=== PATIENT | male | born 1960 | race Caucasian/White ===

== ENCOUNTER 2016-10-31 08:55 | Emergency (ER) | payer BC ==
[2016-10-31 09:15] VITALS: BP 146/100; PULSE 110; TEMP 99.6; BMI 32.8
[2016-10-31] MEDS ORDERED: IBUPROFEN 400 MG TABLET (FP) PO ONE ×2 (09:16→10:03)
--- NOTE | 2016-10-31 09:16 | PDOC ---
History of Present Illness - General Chief Complaint: Cold Symptoms Stated Complaint: FLU Time Seen by Provider: 10/31/16 09:15 History Source: Patient, Old Records Exam Limitations: No Limitations - History of Present Illness Initial Comments: 10/31/16 09:28 6-year-old male with history of hypertension, coronary artery disease and stents who presents to the emergency department with a 2 day history of sore throat, fever, body aches and nonproductive cough. He denies nausea and vomiting. He denies abdominal pain, diarrhea, complaints. He denies chest pain and SOB. Past History - Travel Traveled outside of the country in the last 30 days: No Close contact w/someone who was outside of country & ill: No - Past Medical History Allergies/Adverse Reactions: Allergies Allergy/AdvReac Type Severity Reaction Status Date / Time No Known Allergies Allergy Verified 10/31/16 09:07 Home Medications: Ambulatory Orders Aspirin [Aspirin EC] 81 mg PO DAILY 10/31/16 Metoprolol Succinate [Toprol Xl] 50 mg PO DAILY 10/31/16 Oseltamivir Phosphate [Tamiflu] 75 mg PO BID #10 capsule 10/31/16 Cardiac Disorders: Yes (STENT X3) HTN: Yes - Surgical History Cardiac Surgery: Yes (STENT X3) - Psycho/Social/Smoking Cessation Hx Anxiety: No Suicidal Ideation: No Smoking History: Never smoked Hx Alcohol Use: No Drug/Substance Use Hx: No Substance Use Type: None Review of Systems - Review of Systems Able to Perform ROS?: Yes Is the patient limited Faroese proficient: No Constitutional: Yes: Chills, Fever, Loss of Appetite, Malaise HEENTM: Yes: See HPI, Throat Pain Respiratory: Yes: See HPI, Cough *Physical Exam - Vital Signs Last Vital Signs Temp Pulse Resp BP Pulse Ox 99.6 F 110 H 16 146/100 98 10/31/16 09:06 10/31/16 09:06 10/31/16 09:06 10/31/16 09:06 10/31/16 09:06 - Physical Exam Comments: 10/31/16 09:29 GENERAL: Well developed, well nourished. Awake and alert. No acute distress. HEENT: Normocephalic, atraumatic. PERRLA, EOMI. No conjunctival pallor. Sclera are non- icteric. Moist mucous membranes. Oropharynx is erythematous without exudates. NECK: Supple. Full ROM. No JVD. No lymphadenopathy. CARDIOVASCULAR: Regular rate and rhythm. No murmurs, rubs, or gallops. Distal pulses are 2+ and symmetric. PULMONARY: No evidence of respiratory distress. Lungs clear to auscultation bilaterally. No wheezing, rales or rhonchi. ABDOMINAL: Soft. Non-tender. Non-distended. No rebound or guarding. No organomegaly. Normoactive bowel sounds. MUSCULOSKELETAL Normal range of motion at all joints. No bony deformities or tenderness. No CVA tenderness. EXTREMITIES: No cyanosis. No clubbing. No edema. No calf tenderness. SKIN: Warm and dry. Normal capillary refill. No rashes. No jaundice. NEUROLOGICAL: Alert, awake, appropriate. Cranial nerves 2-12 intact. Grossly non-focal exam. PSYCHIATRIC: Cooperative. Good eye contact. Appropriate mood and affect. Medical Decision Making - Medical Decision Making 10/31/16 09:30 56-year-old male with history of hypertension and CAD presents to the emergency department with 2 day history of sore throat, nonproductive cough, subjective fevers and bodyaches. Differential diagnosis includes but is not limited to: Influenza, URI, strep pharyngitis. Plan: 1. Influenza PCR 2. Rapid strep 3. Ibuprofen for pain and fever 4. Observe and reevaluate 10/31/16 11:23 Addendum: Influenza PCR is positive for influenza A. Tamiflu has been prescribed given in the ED. All lab results were discussed with the patient as well as his diagnosis. The patient has been advised to follow-up with his primary care physician within 3-5 days and to return to the emergency department if his symptoms persist, worsen, or new symptoms arise. *DC/Admit/Observation/Transfer Diagnosis at time of Disposition: URI due to influenza A virus Diagnosis at time of Disposition: (Ruled Out): Acute URI - Discharge Dispostion Disposition: HOME Condition at time of disposition: Stable Admit: No - Prescriptions Prescriptions: Oseltamivir Phosphate [Tamiflu] 75 mg PO BID #10 capsule - Patient Instructions Printed Discharge Instructions: DI for Influenza -- Adult Additional Instructions: You have tested positive for influenza A. You have been prescribed Tamiflu 75 mg. Take 1 tablet twice per day for the next 5 days. You a rapid strep test was negative. You may take Tylenol or Motrin as needed for body aches, sore throat or fever. Please follow-up with your primary care physician within 3-5 days. Please return to the emergency department if your symptoms persist, worsen, or new symptoms arise.
[2016-10-31] MEDS ORDERED: OSELTAMIVIR PHOSPHATE 75 MG CAPSULE PO ONE (11:20)
[2016-10-31] MEDS ORDERED: OSELTAMIVIR PHOSPHATE 75 MG CAPSULE ONE (11:43)
== END 2016-10-31 11:53 | disposition home or self-care (01) ==
LOC: FER 08:55
DX: J09.X2 Influenza due to identified novel influenza A virus with other respiratory manifestations (principal); I10 Essential (primary) hypertension; I25.10 Atherosclerotic heart disease of native coronary artery without angina pectoris; Z95.5 Presence of coronary angioplasty implant and graft; Z79.82 Long term (current) use of aspirin
CPT/HCPCS: 87070; 87430; 87804; 99282-25

== ENCOUNTER 2017-07-19 22:28 | Emergency (ER) | payer BC ==
--- NOTE | 2017-07-19 22:39 | PDOC ---
History of Present Illness - General Chief Complaint: Chest Pain Stated Complaint: CHEST PAIN/LUNG PAIN Time Seen by Provider: 07/19/17 22:39 - History of Present Illness Initial Comments: 07/20/17 01:18 Chief complaint: Chest pain History of present illness: Patient developed left anterior chest pain described as a severe ache at approximately 8 PM tonight while driving his car. The pain was sustained, radiated to the left shoulder and left upper arm, was accompanied by nausea and diaphoresis. There was no shortness of breath. Review of systems: As above. In addition, patient denies fever or chills, recent URI, cough, pleuritic pain, abdominal pain, vomiting or diarrhea, urinary tract symptoms including dysuria frequency urgency hesitancy or hematuria, hematemesis, melena, bloody stool. Also denies visual or focal neurologic symptoms, unsteadiness of gait, headache, lightheadedness, dizziness , or vertigo Past medical history: Coronary artery disease, with angioplasty and stents [id number] at [facility]. No consistent follow-up. High blood pressure. He takes metoprolol 50 mg daily, and to get this morning. However he has been prescribed other medications including aspirin, of which he is noncompliant. He admits high blood pressure and borderline diabetes. He denies prior [place] or CVA/TIA. Social history: Denies tobacco alcohol or nonprescription drugs. Works as a student truck driver. with children stable home and family. Denies any unusual stress Family history: Mother and father with coronary artery disease, [place] in their early 60s. 5 younger brothers, 2 younger sisters, none with known coronary artery disease or other heart problems. No other illnesses known including metabolic disease such as diabetes or cancer. Physical exam: Alert and oriented 3, well-developed well-nourished, moderate distress due to chest pain Color is ashen PERRLA, fundi benign, ENT clear Neck supple without bruit mass or nodes Chest clear with full breath sounds bilaterally, no wheezes rales or rhonchi CV regular without murmur rub or gallop pulses full and symmetric no JVD or edema no bruits Abdomen soft nontender without mass or organomegaly Extremities no CCE Skin clear, no rash, adequate turgor and wet mucous membranes. The patient is not diaphoretic, cool, or clammy. Neurological C2 to 12 intact. No focal sensory or motor deficits. Strength full and symmetric. Gait stable and unimpaired Impression: Chest pain, possible cardiac ischemia, with other possibilities including lung disease such as pneumonia or pulmonary embolus, musculoskeletal pain, or anxiety Plan: EKG, enzymes, further medical management depending on results. Past History - Past Medical History Allergies/Adverse Reactions: Allergies Allergy/AdvReac Type Severity Reaction Status Date / Time No Known Allergies Allergy Verified 10/31/16 09:07 Home Medications: Ambulatory Orders Aspirin [Aspirin EC] 81 mg PO DAILY 10/31/16 Metoprolol Succinate [Toprol Xl] 50 mg PO DAILY 10/31/16 Cardiac Disorders: Yes (STENT X3) HTN: Yes - Surgical History Cardiac Surgery: Yes (STENT X3) - Suicide/Smoking/Psychosocial Hx Smoking History: Never smoked Hx Alcohol Use: No Drug/Substance Use Hx: No Substance Use Type: None *Physical Exam - Vital Signs Last Vital Signs Temp Pulse Resp BP Pulse Ox 99.1 F 98 H 14 110/81 100 07/19/17 22:35 07/20/17 00:08 07/20/17 00:08 07/20/17 00:08 07/20/17 00:08 ED Treatment Course - LABORATORY CBC & Chemistry Diagram: 07/19/17 22:49 07/19/17 22:49 - ADDITIONAL ORDERS Additional order review: Laboratory Results 07/19/17 07/19/17 22:49 22:48 PT with INR 11.7 INR 1.05 Sodium 133 L Potassium 4.4 Chloride 102 Carbon Dioxide 23 Anion Gap 8 BUN 13 Creatinine 1.0 Creat Clearance w eGFR > 60 Random Glucose 116 H Calcium 9.5 Magnesium 2.0 Total Bilirubin 0.6 AST 27 ALT 32 Alkaline Phosphatase 77 Creatine Kinase 146 Troponin I 0.04 Total Protein 7.4 Albumin 4.1 07/19/17 22:49 RBC 5.65 H MCV 83.7 MCHC 33.9 RDW 12.9 MPV 10.2 Neutrophils % 64.0 Lymphocytes % 24.3 Monocytes % 7.3 Eosinophils % 2.3 Basophils % 2.1 H - RADIOLOGY Radiology Studies Ordered: Category Date Time Status CHEST PA & LAT [RAD] Stat Radiology 07/19/17 22:46 Taken - Medications Given in the ED: ED Medications Discontinued Medications Generic Name Dose Route Start Last Admin Trade Name Freq PRN Reason Stop Dose Admin Aspirin 162 mg 07/19/17 22:40 07/19/17 22:40 Asa - PO 07/19/17 22:41 162 mg ONCE ONE Administration Clopidogrel Bisulfate 600 mg 07/19/17 23:03 07/19/17 23:03 Plavix - PO 07/19/17 23:04 600 mg ONCE ONE Administration Nitroglycerin 0.4 mg 07/19/17 22:41 07/19/17 22:40 Nitrostat - SL 07/19/17 22:42 0.4 mg ONCE ONE Administration Medical Decision Making - Critical Care Time Total Critical Care Time (minutes): 30 (acute myocardial infarction with persistent chest pain) Critical Care Statement: The care of this patient involved high complexity decision making to prevent further life threatening deterioration of the patient 's condition and/or to evaluate & treat vital organ system(s) failure or risk of failure. - Medical Decision Making EKG done immediately upon presentation showed significant ST elevation in lead aVL, as well as prominent ST depressions in the inferior and lateral chest leads. This is suggestive of an acute posterior wall myocardial infarction. CBC and chemistries without significant abnormalities. Troponin is 0.04 initially. Nitroglycerin and aspirin immediately administered. The patient states he took no aspirin earlier today. Pain was transiently improved, but recurred, necessitating repeat dose of sublingual nitroglycerin, with consideration of an nitroglycerin drip. However, his pain remained under control after the second dose of sublingual nitroglycerin. Dr. Souza, grey tender vp organizational development for the [place] [employer], was contacted. The symptoms as well as the EKG findings were discussed. He recommended transfer to either [facility] for cardiac catheterization. He advised withholding thrombolytics. The patient's preference was [facility]. The transfer center was contacted. Spoke with chip bin conveyor tender representing Dr. Staples, the attending. She accepted the patient for transfer. She also agreed with the administration of Plavix heparin and aspirin, as well as withholding thrombolytic therapy. Patient with recurrent chest pain, EKG suggestive of STEmi, requiring hemodynamic support and repeat administration of nitroglycerin for pain control , with close pulse and blood pressure monitoring. The patient remained hemodynamically stable and with good pain control until transfer by the stat team from [facility] to the ER there where interventional cardiology would see the patient immediately. 07/20/17 01:28 *DC/Admit/Observation/Transfer Diagnosis at time of Disposition: ST elevation myocardial infarction (STEMI) Qualifiers: Involved coronary artery: unspecified coronary artery Qualified Code(s): I21.3 - ST elevation (STEMI) myocardial infarction of unspecified site; I21.3 - ST elevation (STEMI) myocardial infarction of unspecified site; I21.3 - ST elevation (STEMI) myocardial infarction of unspecified site; I21.3 - ST elevation (STEMI) myocardial infarction of unspecified site - Discharge Dispostion Condition at time of disposition: Guarded Admit: No - Transfer to Acute Care Facility Receiving Facility: [facility].
[2017-07-19] MEDS ORDERED: ASPIRIN 81 MG CHEWABLE TABLETS PO ONE (22:40)
[2017-07-19] MEDS ORDERED: NITROGLYCERIN SUBLINGUAL 1/150 0.4 MG TAB SL ONE (22:41)
[2017-07-19 22:46] VITALS: TEMP 99.1; BMI 27.3
[2017-07-19 22:49] VITALS: PULSE 98
[2017-07-19 23:02] LABS: BASOPHIL 2.1 % (0-2.0); EOSINOPHIL 2.3 % (0-4.5); MCH 28.4 pg (25.7-33.7); MCHC 33.9 g/dl (32.0-35.9); MEAN CELL VOLUME 83.7 fl (80-96); MEAN PLT VOLUME 10.2 fl (7.5-11.1); PLATELET COUNT 251 K/MM3 (134-434); RDW 12.9 % (11.9-15.9); WHITE BLOOD COUNT 12.8 K/mm3 (4.0-10.8)
[2017-07-19] MEDS ORDERED: CLOPIDOGREL BISULFATE 300 MG TABLET PO ONE (23:03)
[2017-07-19] MEDS ORDERED: HEPARIN NA (PORCINE) 5,000 UNITS/ML 1ML VIAL IVPUSH PRN ×2 (23:03)
[2017-07-19 23:09] LABS: INR 1.05 (0.82-1.09); PROTHROMBIN TIME (PATIENT) 11.7 SEC (10.2-13.0)
[2017-07-19] MEDS ORDERED: HEPARIN NA (PORCINE) 5,000 UNITS/ML 1ML VIAL ONE (23:10)
[2017-07-19] MEDS ORDERED: HEPARIN INFUSION - 500 ML IVPB ONE (23:10)
[2017-07-19 23:15] LABS: ALBUMIN 4.1 g/dl (3.5-5.0); ALK PHOS 77 U/L (32-92); ANION GAP 8 (8-16); BILIRUBIN,TOTAL 0.6 mg/dl (0.2-1.0); CALCIUM 9.5 mg/dl (8.4-10.2); CO2 23 mmol/L (22-28); GLUCOSE,RANDOM 116 mg/dl (74-106); SGOT/AST 27 U/L (10-42); SGPT/ALT 32 U/L (10-40); TOT PROT 7.4 g/dl (6.4-8.3)
[2017-07-19] MEDS ORDERED: HEPARIN INFUSION - 500 ML IVPB SCH (23:15)
[2017-07-19 23:18] LABS: CPK 146 IU/L (39-308)
[2017-07-19 23:24] LABS: TROPONIN I (DFP) 0.04 ng/ml (0.03-0.50)
[2017-07-20 01:07] VITALS: BP 110/81
--- NOTE | 2017-07-20 12:27 | EKG ---
Test Reason : Blood Pressure : / mmHG Vent. Rate : 101 BPM Atrial Rate : 101 BPM P-R Int : 142 ms QRS Dur : 090 ms QT Int : 336 ms P-R-T Axes : 030 -38 -78 degrees QTc Int : 435 ms POOR DATA QUALITY, INTERPRETATION MAY BE ADVERSELY AFFECTED SINUS TACHYCARDIA LEFT AXIS DEVIATION Mild ST elevation in I and 1.[address] elevation in aVL, consider myocardial injury ST depression in inferior leads, V1, and V3-6, consider myocardial ischemia ABNORMAL ECG NO PREVIOUS ECGS AVAILABLE Confirmed by LENIN TOBIAS MD ([id number]) on 07/20/2017 12:26:38 PM Referred By: MD AN Confirmed By:LENIN TOBIAS MD
== END 2017-07-20 00:30 | disposition short-term general hospital (02) ==
LOC: FER 22:28
PROC: 3E033GC Introduction of Other Therapeutic Substance into Peripheral Vein, Percutaneous Approach (ICD-10-PCS; principal; 2017-07-19)
DX: I21.3 ST elevation (STEMI) myocardial infarction of unspecified site (principal); I25.2 Old myocardial infarction; Z95.5 Presence of coronary angioplasty implant and graft; I10 Essential (primary) hypertension
CPT/HCPCS: 36415; 71020-TC; 80053; 82272; 82550; 83735; 84484; 85025; 85610; 93005; 99285-25; J1644